=== PATIENT | male | born 1995 | race Caucasian/White ===

== ENCOUNTER 2016-07-10 12:50 | Emergency (ER) | payer OTHER ==
[2016-07-10 15:06] VITALS: BP 113/67
--- NOTE | 2016-07-10 20:18 | ED ---
Pedro Pablo Watson Billy, scribed for Gagandeep Donaldson MD on 07/10/16 at 1434 . Abdominal Pain/Male - HPI Summary HPI Summary: Patient is a 20 y/o male who presents to the [facility] with intermittent, moderate, periumbilical abdominal pain and umbilical discharge for 4 days. Pt states discharge has not been present since showering this morning. He denies any changes in BM. He reports having been in the ER two weeks ago. At that point, he had a urachal cyst. He was prescribed Augmentin and he has finished his course. He described that it was initially a constant pain, but that is no longer the case; his current pain is much less severe than prior. He denies any other pain or symptoms at this time. Prior records reviewed: cultures positive for coag-negative staph, E. coli ( sensitivity is universally susceptible). - History of Current Complaint Chief Complaint: EDAbdPain Stated Complaint: ABD PAIN Time Seen by Provider: 07/10/16 13:38 Hx Obtained From: Patient Onset/Duration: Gradual Onset, Lasting Days, Resolved Timing: Intermittent Severity Initially: Moderate Severity Currently: Moderate Location: Umbilical Radiates: No Aggravating Factor(s): Nothing Alleviating Factor(s): Nothing Associated Signs And Symptoms: Positive: Other - drainage, but none since this morning - Allergies/Home Medications Allergies/Adverse Reactions: Allergies Allergy/AdvReac Type Severity Reaction Status Date / Time No Known Allergies Allergy Verified 07/10/16 12:53 PMH/Surg Hx/FS Hx/Imm Hx Endocrine/Hematology History: Denies: Hx Diabetes Respiratory History: Reports: Hx Asthma Infectious Disease History: No Infectious Disease History: Denies: Traveled Outside the [place] in Last 30 Days - Family History Known Family History: Positive: Diabetes - Mother - Social History Occupation: Student Alcohol Use: None Hx Substance Use: No Substance Use Type: Reports: None Hx Tobacco Use: No Smoking Status (MU): Never Smoked Tobacco Review of Systems Negative: Fever Positive: Abdominal Pain, Other - umbilical drainage All Other Systems Reviewed And Are Negative: Yes Physical Exam Triage Information Reviewed: Yes Vital Signs On Initial Exam: Initial Vitals Temp Pulse Resp BP Pulse Ox 98.2 F 91 16 138/73 99 07/10/16 12:53 07/10/16 12:53 07/10/16 12:53 07/10/16 12:53 07/10/16 12:53 Vital Signs Reviewed: Yes Appearance: Positive: Well-Appearing, No Pain Distress - Comfortable, pleasant, alert, nontoxic. Eyes: Positive: CINDY ENT: Positive: Other - MMM Neck: Positive: Supple, Nontender, No Lymphadenopathy, Other: - Soft, no edema. Cardiovascular: Positive: RRR, Other - No Gallops., S1, S2. Negative: Murmur, Rub Abdomen Description: Positive: Nontender, Soft, Other: - No umbilical fluctuance , redness, or induration. Nontender umbilicus. No inguinal adenopathy.. Negative: Distended Musculoskeletal: Positive: Other - Calves are soft and nontender.. Negative: Edema Left, Edema Right Neurological: Positive: Alert, Oriented to Person Place, Time Psychiatric: Positive: Affect/Mood Appropriate, Other - Logical and coherent. AVPU Assessment: Alert Diagnostics - Vital Signs Vital Signs Temp Pulse Resp BP Pulse Ox 07/10/16 12:53 98.2 F 91 16 138/73 99 - Laboratory Lab Statement: Any lab studies that have been ordered have been reviewed, and results considered in the medical decision making process. Abdominal Pain Fem Course/Dx - Course Assessment/Plan: He had an infected cyst around his umbilicus during . He was on Augmentin. He noted some discharge in the last 24 hours. However, on exam now, there are no signs of worrisome infection. I believe there are a few possibilities here. One, this may be drainage after an appropriately treated cyst and infection in the past, where the abscess or cyst is finally drained. Two, this could be signs of an early infection to come, however, it is impossible to predict this given his completely perfect exam. He has no tenderness, redness, swelling, drainage, or fluctuance now. He is a smart kid, and has been told, and is quite capable of, returning tomorrow should his symptoms worsen. He was encouraged to return to [place] on Tuesday ( in 2 days) for re-evaluation as well. He full understands the instructions and agrees to return for re-evaluation either here or [place] depending on his symptoms. At this point, I believe we have 24-48 hours to decide whether or not he needs antibiotics, and I would only prescribe any antibiotics if there are any worsening symptoms. - Diagnoses Differential Diagnosis/HQI/PQRI: Constipation, Other - cellulitis, abscess. Provider Diagnoses: Visit for wound check Discharge - Discharge Plan Condition: Good Disposition: HOME Referrals: [facility] [Outside] - 2 Days Additional Instructions: Return here at any point should there be any new signs of worsening as we discussed. Warm pack as we discussed as well to promote any further drainage. The documentation as recorded by the Pedro Pablo keating Billy accurately reflects the service I personally performed and the decisions made by me, Gagandeep Donaldson MD.
== END 2016-07-10 15:07 | disposition home or self-care (01) ==
LOC: ED 12:50
DX: R10.9 Unspecified abdominal pain (principal); L08.82 Omphalitis not of newborn
CPT/HCPCS: 99282

== ENCOUNTER → 2016-09-09 06:03 | Day surgery (SDC) | payer OTHER ==
--- NOTE | 2016-08-19 08:57 | HP ---
CC: [facility] ADMISSION HISTORY AND PHYSICAL: DATE OF ADMISSION: 09/09/16 ATTENDING SURGEON: Dr. Fidel Whitman (as dictated by VIRY Barbour) CHIEF COMPLAINT: Recurrent umbilical infection. HISTORY OF PRESENT ILLNESS: This is a generally healthy 20-year-old male who in mid June noted i nfection in the area of the umbilicus. He was seen at a hospital in [place] and a CT scan was p erformed at that time. There was no evidence of abscess or fistulous connection. He was treated wi th antibiotics and this improved. He continues to have intermittent flare-ups of minor discomfort a nd drainage or crusting. He has not had any episodes that mimic the original. He has been seen by Dr. Tidwell who reviewed the CT scan and did not feel that there was likely a connection to the howard dder and he was referred here. He was seen in our office by Dr. Whitman on 08/03/16 at which time, e xam showed question of a possible sinus tract or underlying umbilical cyst, but at that time, there was no tenderness or inflammation. Dr. Whitman discussed with him the indications for surgery, the r isks, benefits, and alternatives and the patient would like to proceed as scheduled with excision of umbilical cyst; possible laparoscopy. PAST MEDICAL HISTORY: Allergies and asthma. PAST SURGICAL HISTORY: His only previous surgery is adenoidectomy as a child. CURRENT MEDICATIONS: 1. Singulair 10 mg once daily. 2. Levocetirizine 5 mg once daily. 3. Pulmicort MDI 2 puffs once daily. 4. Albuterol MDI 2 puffs q.4 hours p.r.n. 5. Vitamin D 5000 International Units once daily. DRUG ALLERGIES: None known. FAMILY HISTORY: Negative for anesthesia problems, bleeding or clotting disorders. 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 He denies use of tobacco, alcoho l, or other drugs. REVIEW OF SYSTEMS: General: No recent constitutional symptoms or acute illnesses other than descri bed in the HPI. Cardiovascular: No chest pain, palpitations, or history of heart murmur. Respirat ory: No recent exacerbations of his asthma. No cough or shortness of breath. GI: No problems rep orted. : No problems reported. Endocrine: No diabetes or thyroid dysfunction. PHYSICAL EXAMINATION GENERAL: Well-nourished, well-developed male, in no acute distress. VITAL SIGNS: Height 5 feet 10-1/2 inches, weight 155, temperature 98.5, blood pressure 104/68, puls e 72. HEENT: Pupils equal and round, reactive. EOMs intact. No conjunctival pallor. Oropharynx: Teeth in good repair. No intraoral lesions. NECK: No lymphadenopathy, thyromegaly, or masses. LUNGS: Clear to auscultation. No wheezes. HEART: Regular rate and rhythm. No murmur noted. ABDOMEN: Flat, nondistended. Soft, nontender to palpation. There is no erythema at the umbilicus. There was a very small amount of fluid in the deepest part of the umbilicus when examined with betzy rile Q-tip. The remainder of the abdomen is soft and nontender. EXTREMITIES: No edema. GENITALIA AND RECTAL: Not repeated (genitalia recently examined. No problems reported). BACK: No spinous process or CVA tenderness. NEUROLOGICAL: Grossly intact. SKIN: Warm and dry. No suspicious rashes or lesions noted. IMPRESSION: Recurrent umbilical infection. PLAN: Excision, umbilical cyst; possible laparoscopy. VIRY WILLSON [id number]/[facility] #: [id number]
[~2016-09-09 06:03] MED LIST: Atracurium* 10 MG/ML 10 ML VIAL ONE; Buffered Lidocaine 1% SYRIN* 3 ML/SYR SYRINGE INTRADERM ONE; Bupivacaine 0.25% EPI 200,000* 30 ML SDV ONE; Bupivacaine 0.5% W/EPI SDV* 30 ML VIAL ONE; Dexamethasone IV* 4 MG/ML 1 ML (4 MG) ONE; Dexamethasone TAB* 0.5 MG PO ONE; Famotidine IV* 10 MG/ML 2 ML (20 mg) IV ONE; Famotidine IV* 10 MG/ML 2 ML (20 mg) ONE; Glycopyrrolate IV* 0.2 MG/ML 1 ML VIAL ONE; KETAMINE HCL* 50 MG/ML 10 ML VIAL ONE; Ketorolac INJ* 30 MG/ML 1 ML VIAL ONE; Lidocaine 1% INJ* 10 MG/ML 30 ML SDV ONE; Lidocaine 2% PF* 5 ML VIAL ONE; Midazolam* 1 MG/ML 5 ML VIAL (5 MG) ONE; Morphine INJ* 10 MG/ML 1 ML SYRINGE ONE; Neostigmine Methylsulfate* 2 MG/2 ML SYRINGE ONE; Ondansetron INJ* 2 MG/ML VIAL ONE; PROCHLORPERAZINE INJ 5 MG/ML 2 ML VIAL IV PRN; Phenylephrine INJ* 10 MG/ML 1 ML VIAL (10 MG) ONE; Phenylephrine IV* 40 MCG/ML 10 ML SYRINGE ONE; Propofol* 10 MG/ML 20 ML BTL IV PUSH ONE; ceFAZolin 2 GM PREMIX(*) 2 GM/50 ML BAG IVPB ONE; fentaNYL* 50 MCG/ML 2 ML VIAL (100 MCG VIAL) IV PRN; fentaNYL* 50 MCG/ML 2 ML VIAL (100 MCG VIAL) ONE; oxyCODONE/Acetamin 5/325 MG* TAB ONE; oxyCODONE/Acetamin 5/325 MG* TAB PO PRN
[2016-09-09] MEDS: Morphine INJ* 2 MG/ML 1 ML SYRINGE IV PRN ×2 (09:18→09:23)
[2016-09-09 10:22] VITALS: BP 122/70
--- NOTE | 2016-09-09 11:46 | OP ---
DATE OF OPERATION: 09/09/16 - [facility] DATE OF : 89 SURGEON: Fidel Whitman MD CERTIFIED DRIVER EXAMINER: Brunilda Sethi NP ANESTHESIOLOGIST: Dr. Flores. ANESTHESIA: General anesthetic, local infiltration. PRE-OP DIAGNOSIS: Umbilical cyst. POST-OP DIAGNOSIS: Umbilical cyst. OPERATIVE PROCEDURE: Umbilical exploration with laparoscopy, resection of umbilical cyst. DESCRIPTION OF PROCEDURE: The patient was supine on the operative table. After adequate general anesthetic, compression stockings, Roel Hugger warmer, and intravenous antibiotics, the abdomen was prepped and draped in a sterile fashion. Local infiltrative anesthesia was administered. Infraumbilical curvilinear incision was created and the umbilicus was dissected up. The umbilicus seemed to continue down through the umbilical fascia, so it was transected at this point and an awl was used to control this remnant and the fascia was dissected and opened up a little wider laterally and a 5 mm cannula was placed. Additional cannulae were placed under direct vision, 5 mm subxiphoid and right abdomen. There was areolar tissue coming up from below. It could not be ascertained whether there is urachal remnant there or not, so this areolar tissue was dissected free and removed with a LigaSure device for control and this was removed through the umbilicus along with the additional umbilical cyst material. This was all sent in formalin for pathologic evaluation. The fascia was closed with running 0 Polysorb. Inspection with the scope revealed that there was no residual excess tissue in the periumbilical region and therefore, the cannulae were removed. Umbilical skin was tacked down using 3-0 Vicryl. Due to the excess umbilical skin, umbilicoplasty was carried out with excess being resected and the umbilicus reconstructed. A 5-0 Vicryl was used for the skin in all cases followed by Steri-Strips. He tolerated the procedure well and was brought to Recovery in good condition. No complications. No drains. Pathologic specimen as above. Sponge and instrument counts correct. Estimated blood loss is less than 20 mL. CC: [facility]* [id number]/[facility] #: [id number]
== END | disposition home or self-care (01) ==
LOC: OR 06:03
PROVIDERS: ATTEND Surgery
DX: R19.05 Periumbilic swelling, mass or lump (principal); J45.909 Unspecified asthma, uncomplicated
CPT/HCPCS: 88304; A9270-GY; J0690; J1100; J1885; J2001; J2250; J2270; J2405; J2704; J3010